=== PATIENT | female | born 1995 | race Caucasian/White ===

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

== ENCOUNTER → 2020-09-05 02:50 | Observation (INO) ==
[2020-09-05 00:32] VITALS: BP 129/81
[2020-09-05 01:14] LABS: Bacteria,Urine Few per hpf (None-Few); Bilirubin,Urine Negative (Negative); Blood,Urine Moderate (Negative); Calcium Oxalate Crystals,Urine Present per hpf; Clarity,Urine Turbid (Clear); Color,Urine Yellow (Yellow); Glucose,Urine (UA) Normal (Normal); Hyaline Casts,Urine Few per lpf (None Seen); Ketones,Urine Trace mg/dL (Negative); Leukocyte Esterase,Urine Negative (Negative); Mucus,Urine Moderate per lpf (None-Few); Nitrite,Urine Negative (Negative); Protein,Urine 50 mg/dL (Neg-Trace); Specific Gravity,Urine > 1.030 (1.010-1.025); Squamous Epithelial Cell,Urine Few per hpf (None-Few)
== END | disposition home or self-care (01) ==
LOC: 1NENULAB
PROVIDERS: ADMIT Registered Nurse; ATTEND Registered Nurse

== ENCOUNTER 2020-09-26 02:56 | Inpatient (IN) ==
[2020-09-25 17:39] LABS: Basophils % 0.5 %; Hematocrit 41.2 % (35.3-44.9); Hemoglobin 13.9 g/dL (11.5-15.4); Immature Granulocytes % 1.5 % (0-4); Immature Platelets 4.4 % (1.1-6.1); Lymphocytes # 1.5 K/mcL (0.6-4.6); Mean Corpuscular HGB Conc 33.7 g/dL (31.6-35.5); Mean Corpuscular Volume 85.8 fL (83.0-100.0); Mean Platelet Volume 10.2 fL (9.4-12.4); Monocytes # 0.5 K/mcL (0.0-1.3); Monocytes % 6.9 %; Neutrophils # 4.5 K/mcL (1.6-8.9); Platelet Count 119 K/mcL (140-400); Red Cell Distribution Width 15.6 % (11.5-14.5); Segmented Neutrophils % 68.1 %; White Blood Count 6.6 K/mcL (4.3-11.1)
[2020-09-25 18:24] LABS: Adenovirus Not Detected (Not Detect); Coronavirus 229E Not Detected (Not Detect); Coronavirus HKU1 Not Detected (Not Detect); Coronavirus NL63 Not Detected (Not Detect); Coronavirus OC43 Not Detected (Not Detect)
[2020-09-25 18:25] LABS: Bordetella Pertussis Not Detected (Not Detect); Chlamydophila pneumoniae Not Detected (Not Detect); Human Metapneumovirus Not Detected (Not Detect); Human Rhinovirus/Enterovirus Not Detected (Not Detect); Influenza A Subtype 2009 H1 Not Detected (Not Detect); Influenza B Not Detected (Not Detect); Mycoplasma pneumoniae Not Detected (Not Detect); Parainfluenza Virus 1 Not Detected (Not Detect); Parainfluenza Virus 2 Not Detected (Not Detect); Parainfluenza Virus 3 Not Detected (Not Detect); Parainfluenza Virus 4 Not Detected (Not Detect); Respiratory Syncytial Virus Not Detected (Not Detect); SARS-CoV-2 DETECTED (Not Detect)
[2020-09-25 18:40] LABS: Alanine Aminotransferase 124 Units/L (7-52); Aspartate Amino Transferase 134 Units/L (13-39); BUN/Creatinine Ratio 9 (6-26); Blood Urea Nitrogen 5 mg/dL (6-20); Lactate Dehydrogenase 252 Units/L (140-271); Protein/Creatinine Ratio,Urine 0.32 mg/mg (0.00-0.20); Uric Acid 9.3 mg/dL (2.3-7.6); eGFR For African Americans > 60 (> 60); eGFR For Non-African Americans > 60 (> 60)
[2020-09-25 20:00] LABS: Amphetamine Screen,Urine Negative ng/mL (Cutoff=1000); Barbiturate Screen,Urine Negative ng/mL (Cutoff=200); Benzodiazepines Screen,Urine Negative ng/mL (Cutoff=200); Cannabinoid Screen,Urine Negative ng/mL (Cutoff = 50); Cocaine Screen,Urine Negative ng/mL (Cutoff= 300); Opiate Screen,Urine Negative ng/mL (Cutoff=300); Phencyclidine Screen,Urine Negative ng/mL (Cutoff=25)
[~2020-09-26 02:56] MED LIST: *HR* HYDROcodone/Acet 5/325 mg TABLET PO PRN; *HR* Nalbuphine 10 MG/ML AMPUL IV PRN; Acetaminophen 325 MG TABLET PO ONE; Benzocaine/Menthol 56 GM AEROSOL SPRAY TP PRN; EPHEDrine 50 MG/ML VIAL IVP PRN; Epidural Premix (fent/bupiv) 110 ML EP SCH; Famotidine 20 MG/2 ML VIAL IVP PRN; Lanolin 7 G OINT...G. TP PRN; Metoclopramide 10 MG/2 ML VIAL IVP PRN; Naloxone 0.4 MG/ML INJ IVP PRN; Oxytocin 20 units/ LR 1000 mL 20 UNIT/1,000 ML BAG IVC ONE; Oxytocin 20 units/ LR 1000 mL 20 UNIT/1,000 ML BAG IVC SCH; Ringers Solution, Lactated 1,000 ML IVC SCH
[2020-09-26] MEDS: Prenatal Vit/FA 1 EACH TABLET PO SCH (08:29)
[2020-09-26] MEDS: valACYclovir 500 MG TABLET PO SCH ×2 (08:29→21:59)
[2020-09-26] MEDS: Ibuprofen 600 MG TABLET PO PRN ×3 (08:29→22:00)
[2020-09-26 09:58] LABS: Basophils % 0.3 %; Hematocrit 36.2 % (35.3-44.9); Immature Granulocytes % 0.9 % (0-4); Lymphocytes # 1.4 K/mcL (0.6-4.6); Lymphocytes % 20.8 %; Mean Corpuscular HGB Conc 33.4 g/dL (31.6-35.5); Mean Corpuscular Hemoglobin 28.9 pg (28.0-33.3); Mean Corpuscular Volume 86.4 fL (83.0-100.0); Mean Platelet Volume 10.4 fL (9.4-12.4); Monocytes # 0.3 K/mcL (0.0-1.3); Monocytes % 4.7 %; Platelet Count 104 K/mcL (140-400); Red Blood Count 4.19 M/mcL (3.82-4.97); Red Cell Distribution Width 15.4 % (11.5-14.5); Segmented Neutrophils % 73.3 %; White Blood Count 6.8 K/mcL (4.3-11.1)
[2020-09-26 10:00] LABS: Hemoglobin 12.1 g/dL (11.5-15.4)
[2020-09-26] MEDS ORDERED: *HR* Enoxaparin 40 MG/0.4 ML SYRINGE SQ SCH (11:00)
[2020-09-26] MEDS: *HR* Enoxaparin 60 MG/0.6 ML SYRINGE SQ SCH ×2 (11:01→21:59)
[2020-09-26] MEDS: Acetaminophen 325 MG TABLET PO PRN (23:48)
[2020-09-27 06:21] LABS: Basophils % 0.2 %; Eosinophils % 0.4 %; Hemoglobin 11.3 g/dL (11.5-15.4); Immature Granulocytes % 0.9 % (0-4); Lymphocytes # 1.2 K/mcL (0.6-4.6); Mean Corpuscular HGB Conc 34.2 g/dL (31.6-35.5); Mean Corpuscular Hemoglobin 29.7 pg (28.0-33.3); Mean Corpuscular Volume 86.6 fL (83.0-100.0); Mean Platelet Volume 10.3 fL (9.4-12.4); Monocytes # 0.4 K/mcL (0.0-1.3); Monocytes % 6.5 %; Neutrophils # 3.9 K/mcL (1.6-8.9); Platelet Count 103 K/mcL (140-400); Red Blood Count 3.81 M/mcL (3.82-4.97); Red Cell Distribution Width 15.6 % (11.5-14.5); White Blood Count 5.5 K/mcL (4.3-11.1)
[2020-09-27 06:41] LABS: Alanine Aminotransferase 77 Units/L (7-52); Aspartate Amino Transferase 60 Units/L (13-39); Blood Urea Nitrogen 8 mg/dL (6-20); Lactate Dehydrogenase 223 Units/L (140-271); Uric Acid 9.1 mg/dL (2.3-7.6)
[2020-09-27 08:10] VITALS: BP 130/86
[2020-09-27] MEDS: Ibuprofen 600 MG TABLET PO PRN (10:27)
[2020-09-27] MEDS: Prenatal Vit/FA 1 EACH TABLET PO SCH (10:27)
[2020-09-27] MEDS: *HR* Enoxaparin 60 MG/0.6 ML SYRINGE SQ SCH (10:27)
[2020-09-27] MEDS: valACYclovir 500 MG TABLET PO SCH (10:27)
[2020-09-27] MEDS: Acetaminophen 325 MG TABLET PO PRN (14:17)
== END 2020-09-27 16:32 | disposition home or self-care (01) | DRG 805 ==
LOC: 1NENULAB → 1NENUOBS 02:56
PROVIDERS: ADMIT Advanced Practice Midwife; ATTEND Advanced Practice Midwife